=== PATIENT | female | born 1935 | race Caucasian/White ===

== ENCOUNTER 2017-05-04 09:48 | Emergency (ER) | payer MEDICARE, MEDICAID ==
[2017-05-04 10:48] VITALS: BP 174/70
[2017-05-04] MEDS ORDERED: HYDROmorphone 1 MG/ML Syringe IVPUSH ONE (11:08)
[2017-05-04] MEDS ORDERED: Ondansetron 4 MG/2 ML SDV IV ONE (11:08)
[2017-05-04] MEDS: Sodium Chloride 0.9% 10 ML Syringe FLUSH PRN ×2 (11:18→11:21)
--- NOTE | 2017-05-04 12:00 | EDM.PDOC ---
Scribed by Benita Sommers 05/04/17 [id number] for Candace Carvajal NP ED HPI GENERAL MEDICAL PROBLEM - General Chief Complaint: Upper Extremity Injury/Pain Stated Complaint: FELL ON RT ARM Time Seen by Provider: 05/04/17 11:05 Source of Information: Reports: Patient, RN, RN Notes Reviewed History Limitations: Reports: No Limitations - History of Present Illness INITIAL COMMENTS - FREE TEXT/NARRATIVE: Patient fell on ice getting the paper. She landed on the right shoulder. Denies hitting her head or loss of consciousness. Pain only in the right shoulder. Rates pain 5/10. Onset: Today Location: Reports: Upper Extremity, Right Quality: Reports: Ache Severity: Moderate Improves with: Reports: None Worsens with: Reports: None Associated Symptoms: Reports: No Other Symptoms Right Upper Arm Pain Score (Numeric/FACES): 5 - Related Data Allergies Allergy/AdvReac Type Severity Reaction Status Date / Time No Known Allergies Allergy Verified 07/16/14 09:29 Home Meds: Home Meds Hydrochlorothiazide 25 mg PO DAILY 07/16/14 [History] Metoprolol Succinate 50 mg PO DAILY 07/16/14 [History] Simvastatin [Zocor] 40 mg PO BEDTIME 07/16/14 [History] Past Medical History HEENT History: Reports: Impaired Vision Cardiovascular History: Reports: High Cholesterol, Hypertension - Past Surgical History HEENT Surgical History: Reports: Tonsillectomy Female Surgical History: Reports: Other (See Below) Other Female Surgeries/Procedures: urethra rebuild Social & Family History - Tobacco Use Smoking Status *Q: Never Smoker Second Hand Smoke Exposure: No - Caffeine Use Caffeine Use: Reports: Coffee, Tea - Alcohol Use Days Per Week of Alcohol Use: 0 - Recreational Drug Use Recreational Drug Use: No Review of Systems - Review of Systems Review Of Systems: ROS reveals no pertinent complaints other than HPI. ED EXAM, GENERAL - Physical Exam Exam: See Below Exam Limited By: No Limitations General Appearance: Alert, WD/WN, No Apparent Distress Eye Exam: Bilateral Eye: Normal Inspection Ears: Normal External Exam, Normal Canal, Hearing Grossly Normal, Normal TMs Nose: Normal Inspection, Normal Mucosa, No Blood Throat/Mouth: Normal Inspection, Normal Lips, Normal Teeth, Normal Gums, Normal Oropharynx, Normal Voice, No Airway Compromise Head: Atraumatic, Normocephalic Neck: Normal Inspection, Supple, Non-Tender, Full Range of Motion Respiratory/Chest: No Respiratory Distress, Lungs Clear, Normal Breath Sounds, No Accessory Muscle Use, Chest Non-Tender Cardiovascular: Normal Peripheral Pulses, Regular Rate, Rhythm, No Edema, No Gallop, No JVD, No Murmur, No Rub GI/Abdominal: Normal Bowel Sounds, Soft, Non-Tender, No Organomegaly, No Distention, No Abnormal Bruit, No Mass (Female) Exam: Deferred Rectal (Female) Exam: Deferred Back Exam: Normal Inspection, Full Range of Motion, NT Extremities: Other (obvious deformity right anterior shoulder.) Neurological: Alert, Oriented, CN II-XII Intact, Normal Cognition, Normal Gait, Normal Reflexes, No Motor/Sensory Deficits Psychiatric: Normal Affect, Normal Mood Skin Exam: Warm, Dry, Intact, Normal Color, No Rash Lymphatic: No Adenopathy Course - Vital Signs Last Recorded V/S: Last Vital Signs Temp 98.1 F 05/04/17 10:47 Pulse 61 05/04/17 10:47 Resp 18 05/04/17 10:47 BP 174/70 H 05/04/17 10:47 Pulse Ox 100 05/04/17 10:47 - Orders/Labs/Meds Orders: Active Orders 24 hr Category Date Time Status Peripheral IV Care [RC] . DIRECTED Care 05/04/17 11:08 Active Humerus Rt [CR] Urgent Exams 05/04/17 10:09 Taken Shoulder Comp Rt [CR] Urgent Exams 05/04/17 10:09 Ordered Sodium Chloride 0.9% [Saline Flush] Med 05/04/17 11:08 Active 10 ml FLUSH ASDIRECTED PRN Peripheral IV Insertion Adult [OM.PC] Stat Oth 05/04/17 11:08 Ordered Medication Orders Sodium Chloride (Saline Flush) 10 ml FLUSH ASDIRECTED PRN PRN Reason: Keep Vein Open Last Admin: 05/04/17 11:21 Dose: 10 ml Admin: 05/04/17 11:18 Dose: 10 ml Labs: Laboratory Tests 05/04/17 05/04/17 Range/Units 11:27 11:27 WBC 7.7 (5.0-10.0) 10^3/uL RBC 4.18 L (4.2-5.4) 10^6/uL Hgb 12.9 (12.0-16.0) g/dL Hct 38.2 (37.0-47.0) % MCV 91.4 (80-100) fL MCH 30.9 (27.0-34.0) pg MCHC 33.8 (33.0-35.0) g/dL Plt Count 208 (150-450) 10^3/uL Neut % (Auto) 80.6 H (42.2-75.2) % Lymph % (Auto) 11.7 L (20.5-50.1) % [place] % (Auto) 7.2 (2-8) % Eos % (Auto) 0.4 L (1.0-3.0) % Baso % (Auto) 0.1 (0.0-1.0) % Sodium 134 L (135-145) mmol/L Potassium 3.9 (3.6-5.0) mmol/L Chloride 95 L (101-111) mmol/L Carbon Dioxide 28.0 (21.0-31.0) mmol/L Anion Gap 14.9 BUN 17 (7-18) mg/dL Creatinine 1.1 (0.6-1.3) mg/dL Est Cr Clr Drug Dosing 35.81 mL/min Estimated GFR (MDRD) 48 BUN/Creatinine Ratio 15.45 Glucose 105 (74-105) mg/dL Calcium 9.5 (8.4-10.2) mg/dl Total Bilirubin 1.4 H (0.2-1.0) mg/dL AST 34 (10-42) IU/L ALT 17 (10-60) IU/L Alkaline Phosphatase 78 (42-121) IU/L Total Protein 7.0 (6.7-8.2) g/dl Albumin 4.4 (3.2-5.5) g/dl Globulin 2.6 Albumin/Globulin Ratio 1.69 Meds: Medications Generic Name Dose Route Start Last Admin Trade Name Freq PRN Reason Stop Dose Admin Sodium Chloride 10 ml 05/04/17 11:08 05/04/17 11:21 Saline Flush FLUSH 10 ml ASDIRECTED PRN Administration Keep Vein Open Discontinued Medications Generic Name Dose Route Start Last Admin Trade Name Freq PRN Reason Stop Dose Admin Hydromorphone HCl 0.5 mg 05/04/17 11:08 05/04/17 11:19 Dilaudid IVPUSH 05/04/17 11:09 0.5 mg ONETIME ONE Administration Ondansetron HCl 4 mg 05/04/17 11:08 05/04/17 11:16 Zofran IV 05/04/17 11:09 4 mg ONETIME ONE Administration - Radiology Interpretation Free Text/Narrative:: X-ray right humerus: Impacted comminuted displaced fracture of the right humeral neck. No dislocation visualized. Departure - Departure Time of Disposition: 11:54 Disposition: Home, Self-Care 01 Condition: Fair Clinical Impression: Fracture of humerus Qualifiers: Encounter type: initial encounter Humerus Location: proximal Fracture type: closed Fracture morphology: other fracture Fracture alignment: displaced Laterality: right Qualified Code(s): S42.291A - Other displaced fracture of upper end of right humerus, initial encounter for closed fracture - Discharge Information Instructions: How to Use a Sling, [id number], Humerus Fracture Treated With Immobilization, [id number] Referrals: Katty Ledezma MD [Primary Care Provider] - Forms: ED Department Discharge Additional Instructions: Tylenol or ibuprofen as directed for pain Use sling for 3 days, let the arm hang, do not cinch up tight. After 3 days may begin pendulum exercises, letting the arm hang. Call [facility] on Friday [phone] To make an appointment with ortho for 7-10 days. Tell them you have been seen in the ER and have a IMPACTED COMMINUTED DISPLACED FRACTURE OF THE RIGHT HUMERAL NECK. And that Dr. Morel suggested follow up in 7-10 days. - My Orders Last 24 Hours: My Active Orders 05/04/17 10:09 Humerus Rt [CR] Urgent Shoulder Comp Rt [CR] Urgent 05/04/17 11:08 Peripheral IV Care [RC] . DIRECTED Sodium Chloride 0.9% [Saline Flush] 10 ml FLUSH ASDIRECTED PRN Peripheral IV Insertion Adult [OM.PC] Stat - Assessment/Plan Last 24 Hours: My Active Orders 05/04/17 10:09 Humerus Rt [CR] Urgent Shoulder Comp Rt [CR] Urgent 05/04/17 11:08 Peripheral IV Care [RC] . DIRECTED Sodium Chloride 0.9% [Saline Flush] 10 ml FLUSH ASDIRECTED PRN Peripheral IV Insertion Adult [OM.PC] Stat I have read and agree with the documentation that has been completed regarding this visit. By signing this record, I attest that the documentation was completed in my physical presence and is an accurate record of the encounter.
== END 2017-05-04 12:12 | disposition home or self-care (01) ==
LOC: DL.ED 09:48
DX: S42.291A Other displaced fracture of upper end of right humerus, initial encounter for closed fracture (principal); I10 Essential (primary) hypertension; E78.00 Pure hypercholesterolemia, unspecified; Z79.899 Other long term (current) drug therapy; W00.2XXA Other fall from one level to another due to ice and snow, initial encounter
CPT/HCPCS: 36415; 73060; 80053; 85025; 96374; 96375; 99284; J1170; J2405; J7050

== ENCOUNTER 2024-06-15 12:27 | Emergency (ER) | payer MEDICARE, MEDICAID ==
[2024-06-15 12:54] LABS: BILIRUBIN,URINE NEGATIVE (NEGATIVE); COLOR,URINE YELLOW (YELLOW); GLUCOSE,URINE NEGATIVE (NEGATIVE); KETONES,URINE TRACE (NEGATIVE); LEUKOCYTE ESTERASE,URINE TRACE (NEGATIVE); NITRITE,URINE NEGATIVE (NEGATIVE); OCCULT BLOOD,URINE LARGE (NEGATIVE); PROTEIN,URINE 100 (NEGATIVE); UROBILINOGEN,URINE 0.2 mg/dL (0.2-1.0)
[2024-06-15 12:55] LABS: APPEARANCE,URINE SLIGHTLY CLOUDY (CLEAR)
[2024-06-15 12:59] LABS: BACTERIA,URINE FEW /HPF (0-FEW/HPF); EPITHELIAL CELLS,URINE FEW /HPF (NOT SEEN); MUCUS,URINE OCCASIONAL /LPF (NOT SEEN); RBC,URINE 40-50 /HPF (0-5)
[2024-06-15 13:41] VITALS: BP 102/65; PULSE 94
[2024-06-15] MEDS: Nitrofurantoin Monohydrate/Macrocrystalline 100 MG Cap PO ONE (13:50)
== END 2024-06-15 13:56 | disposition home or self-care (01) ==
LOC: DL.ED 12:27
DX: N39.0 Urinary tract infection, site not specified (principal); R31.9 Hematuria, unspecified; I10 Essential (primary) hypertension; E78.00 Pure hypercholesterolemia, unspecified; Z90.89 Acquired absence of other organs; Z79.899 Other long term (current) drug therapy
CPT/HCPCS: 81001; 87086; 87088; 87186; 93005; 99284; A9270-GY

== ENCOUNTER 2025-01-24 10:10 | Emergency (ER) | payer MEDICARE, MEDICAID ==
[2025-01-24] MEDS ORDERED: Sodium Chloride 0.9% 10 ML Syringe FLUSH PRN (10:17)
[2025-01-24] MEDS: Iopamidol 755 Mg/ML 100 ML Bottle IVPUSH ONE (10:26)
[2025-01-24 10:32] LABS: BASOPHILS PERCENT AUTO 0.3 % (0.0-1.0); EOSINOPHILS PERCENT AUTO 3.0 % (1.0-3.0); LYMPHOCYTES PERCENT AUTO 26.4 % (20.5-50.1); MONOCYTES PERCENT AUTO 10.3 % (2-8); NEUTROPHILS PERCENT AUTO 60.0 % (42.2-75.2); PLATELET COUNT,PLT 269 10^3/uL (150-450); RED BLOOD CELL COUNT 4.20 10^6/uL (4.2-5.4); WHITE BLOOD CELL COUNT,WBC 5.8 10^3/uL (5.0-10.0)
[2025-01-24 10:51] LABS: INR 1.0 (0.9-1.2); PTT,PARTIAL THROMBOPLSTIN TIME 23.3 SEC (22.0-34.0)
[2025-01-24 10:55] LABS: A/G RATIO 1.0; ALANINE AMINOTRANSFERASE,ALT 14 U/L (14-59); ASPARTATE AMNIOTRANSFERASE,AST 18 U/L (15-37); BILIRUBIN TOTAL 0.7 mg/dL (0.2-1.0); BLOOD UREA NITROGEN,BUN 8 mg/dL (7-18); CARBON DIOXIDE,CO2 27 mmol/L (21-32); CHLORIDE,CL 106 mmol/L (98-107); CREATININE 1.06 mg/dL (0.55-1.02); ESTIMATED GFR 51 mL/min (>=60); GLUCOSE RANDOM 119 mg/dL (70-99); POTASSIUM,K 3.5 mmol/L (3.5-5.1); PROTEIN TOTAL,TP 6.9 g/dL (6.4-8.2); SODIUM,NA 142 mmol/L (136-145)
[2025-01-24 11:05] LABS: APPEARANCE,URINE CLEAR (CLEAR); GLUCOSE,URINE NEGATIVE (NEGATIVE); OCCULT BLOOD,URINE TRACE-LYSED (NEGATIVE)
[2025-01-24 11:26] LABS: EPITHELIAL CELLS,URINE MODERATE /HPF (NOT SEEN)
[2025-01-24 12:32] VITALS: BP 115/65; PULSE 68
== END 2025-01-24 12:08 | disposition home or self-care (01) ==
LOC: DL.ED 10:10
DX: I65.02 Occlusion and stenosis of left vertebral artery (principal); N39.0 Urinary tract infection, site not specified; I49.8 Other specified cardiac arrhythmias; I10 Essential (primary) hypertension; E78.00 Pure hypercholesterolemia, unspecified; R41.0 Disorientation, unspecified; Z79.899 Other long term (current) drug therapy; Z51.5 Encounter for palliative care
CPT/HCPCS: 36415; 70450; 70496; 70498; 80053; 81001; 82947; 83735; 84484; 85025; 85610; 85730; 87086; 93005; 93010; 99285; Q9967